=== PATIENT | female | born 1975 | race Caucasian/White ===

== ENCOUNTER 2018-05-05 10:37 | Emergency (ER) | payer SELFPAY ==
[2018-05-05 10:59] VITALS: BP 118/81
[2018-05-05] MEDS ORDERED: NORMAL SALINE 1000 ML 1,000 ML IV ONE (11:08)
[2018-05-05] MEDS ORDERED: KETOROLAC TROMETHAMINE INJ/PF 30 MG/1 ML SDV IV ONE (11:08)
[2018-05-05] MEDS ORDERED: PROCHLORPERAZINE EDISYLATE INJ 10 MG/2 ML VIAL IV ONE (11:09)
--- NOTE | 2018-05-05 11:10 | ER Document Report ---
ED Medical Screen (RME) - General TRAVEL OUTSIDE OF THE [place] IN LAST 30 DAYS: No <SVETLANAJEREKARELYSHERYL - Last Filed: 05/05/18 11:09> <VAZQUEZLISA - Last Filed: 05/05/18 13:15> - General Chief Complaint: Abdominal Pain Stated Complaint: ABDOMINAL PAIN/VOMITING Time Seen by Provider: 05/05/18 11:04 Notes: 43 years old female presents today with nearly a month history of belching and nausea, one day history of left flank pain radiating to the groin associated with vomiting. History of kidney stones 7 years ago. Sharp tenderness over the left flank as well as left side of the abdomen. Seems to be in moderate discomfort (KASSANDRA MOTA) - HPI Notes: 05/05/18 13:12 Patient is a 43-year-old female that presents to the emergency department for chief complaint of left flank pain. Patient started having acute onset of left flank pain at 5 AM this morning. She states it radiates down into her right groin. She states the pain is worse with urination. She denies any hematuria, fevers or chills. She has felt nauseated with no vomiting. She denies any diarrhea. She does have a history of kidney stones and states this feels similar. Patient also states over the last month she has had intermittent episodes of belching, epigastric pain and nausea. She is not currently having epigastric pain. Past Medical History: History of kidney stones, IBS Past Surgical History: Cholecystectomy Social History: Daily tobacco, occasional marijuana, denies alcohol. Family History: Reviewed and noncontributory for presenting illness Allergies: Reviewed, see documented allergy list. REVIEW OF SYSTEMS: CONSTITUTIONAL : No fever No chills No diaphoresis No recent illness EENT: No vision changes No congestion No sore throat CARDIOVASCULAR: No chest pain No palpitations RESPIRATORY: No shortness of breath No cough No difficulty breathing GASTROINTESTINAL: abdominal pain nausea No vomiting No diarrhea GENITOURINARY: dysuria No hematuria No difficulty urinating MUSCULOSKELETAL: No back pain No leg pain No arm pain SKIN: No rashes No lesions LYMPHATIC: No swollen, enlarged glands. NEUROLOGICAL: No lightheadedness No headache No weakness No paresthesias PSYCHIATRIC: No anxiety No depression PHYSICAL EXAMINATION: Vital signs reviewed, nursing noted reviewed. GENERAL: Well-appearing, well-nourished and in no acute distress. HEAD: Atraumatic, normocephalic. EYES: Eyes appear normal, extraocular movements intact, sclera anicteric, conjunctiva are normal. ENT: nares patent, oropharynx clear without exudates. Moist mucous membranes. NECK: Normal range of motion, supple without lymphadenopathy LUNGS: Breath sounds clear to auscultation bilaterally and equal. No wheezes rales or rhonchi. HEART: Regular rate and rhythm without murmurs ABDOMEN: Soft, mild left upper quadrant tenderness, normoactive bowel sounds. No rebound, guarding, or rigidity. No masses appreciated. EXTREMITIES: Nontender, good range of motion, no pitting or edema. NEUROLOGICAL: No focal neurological deficits. Moves all extremities spontaneously Motor and sensory grossly intact on exam. PSYCH: Normal mood, normal affect. SKIN: Warm, Dry, normal turgor, no rashes or lesions noted on exposed skin (LISA VAZQUEZ) - Related Data Allergies/Adverse Reactions: No Known Allergies Allergy (Unverified 05/05/18 10:39) Past Medical History Renal/ Medical History: Denies: Hx Peritoneal Dialysis <KASSANDRA MOTA - Last Filed: 05/05/18 11:09> - Vital signs Vitals: Temp Pulse Resp BP Pulse Ox 98.5 F 102 H 17 118/81 100 05/05/18 10:58 05/05/18 10:58 05/05/18 10:58 05/05/18 10:58 05/05/18 10:58 Course - Laboratory Result Diagrams: 05/05/18 11:20 05/05/18 11:20 <ILSA VAZQUEZ - Last Filed: 05/05/18 13:15> - Re-evaluation Re-evalutation: 05/05/18 13:14 Vitals reviewed. Nursing notes reviewed. Patient CT scan shows no acute intra- abdominal process. Her blood work is unremarkable. Urinalysis negative for i nfection. She does have some calcium oxalate crystals in her urine. Patient symptoms may be related to ureterolithiasis that has been passed. She is not having any current renal failure or hydronephrosis. Patient did have some improvement after Toradol. She will be discharged home in stable condition and encouraged to follow closely with primary care as an outpatient. Counseled on return precautions and verbalized understanding. Laboratory 05/05/18 05/05/18 05/05/18 11:20 11:20 11:41 WBC 8.1 RBC 4.69 Hgb 15.7 H Hct 44.7 MCV 95 MCH 33.5 H MCHC 35.2 RDW 12.8 Plt Count 246 Seg Neutrophils % 61.7 Lymphocytes % 30.9 Monocytes % 5.6 Eosinophils % 1.4 Basophils % 0.4 Absolute Neutrophils 5.0 Absolute Lymphocytes 2.5 Absolute Monocytes 0.4 Absolute Eosinophils 0.1 Absolute Basophils 0.0 Sodium 141.7 Potassium 4.5 Chloride 108 H Carbon Dioxide 23 Anion Gap 11 BUN 10 Creatinine 0.57 Est GFR ( Amer) > 60 Est GFR (Non-Af Amer) > 60 Glucose 109 Calcium 10.1 Total Bilirubin 0.8 Direct Bilirubin 0.2 Neonat Total Bilirubin Not Reportable Neonat Direct Bilirubin Not Reportable Neonat Indirect Bili Not Reportable AST 21 ALT 17 Alkaline Phosphatase 80 Total Protein 8.2 Albumin 5.2 H Lipase 47.0 Urine Color Urine Appearance Urine pH Ur Specific [place] Urine Protein Urine Glucose (UA) Urine Ketones Urine Blood Urine Nitrite Urine Bilirubin Urine Urobilinogen Ur Leukocyte Esterase Urine WBC (Auto) Squamous Epi Cells Auto Calcium Oxalate Cr Auto Amorphous Sediment Auto Urine Mucus (Auto) Urine Ascorbic Acid Urine HCG, Qual Urine Opiates Screen NEGATIVE Urine Methadone Screen NEGATIVE Ur Barbiturates Screen NEGATIVE Ur Phencyclidine Scrn NEGATIVE Ur Amphetamines Screen NEGATIVE U Benzodiazepines Scrn NEGATIVE Urine Cocaine Screen NEGATIVE U Marijuana (THC) Screen UNCONFIRMED POSITIVE 05/05/18 11:41 WBC RBC Hgb Hct MCV MCH MCHC RDW Plt Count Seg Neutrophils % Lymphocytes % Monocytes % Eosinophils % Basophils % Absolute Neutrophils Absolute Lymphocytes Absolute Monocytes Absolute Eosinophils Absolute Basophils Sodium Potassium Chloride Carbon Dioxide Anion Gap BUN Creatinine Est GFR ( Amer) Est GFR (Non-Af Amer) Glucose Calcium Total Bilirubin Direct Bilirubin Neonat Total Bilirubin Neonat Direct Bilirubin Neonat Indirect Bili AST ALT Alkaline Phosphatase Total Protein Albumin Lipase Urine Color YELLOW Urine Appearance TURBID Urine pH 5.0 Ur Specific [place] 1.029 Urine Protein 30 H Urine Glucose (UA) NEGATIVE Urine Ketones NEGATIVE Urine Blood MODERATE H Urine Nitrite NEGATIVE Urine Bilirubin MODERATE H Urine Urobilinogen 2.0 H Ur Leukocyte Esterase NEGATIVE Urine WBC (Auto) 1 Squamous Epi Cells Auto 10 Calcium Oxalate Cr Auto MODERATE Amorphous Sediment Auto TRACE Urine Mucus (Auto) MANY Urine Ascorbic Acid NEGATIVE Urine HCG, Qual NEGATIVE Urine Opiates Screen Urine Methadone Screen Ur Barbiturates Screen Ur Phencyclidine Scrn Ur Amphetamines Screen U Benzodiazepines Scrn Urine Cocaine Screen U Marijuana (THC) Screen Limited or Localized CT 05/05/18 11:08 IMPRESSION: 1. No CT findings to explain acute flank pain. No evidence of urinary tract calculus or hydronephrosis. 2. Diverticulosis without evidence of acute diverticulitis. (LISA VAZQUEZ) - Vital Signs Vital signs: Temp Pulse Resp BP Pulse Ox 98.5 F 102 H 17 118/81 100 05/05/18 10:58 05/05/18 10:58 05/05/18 10:58 05/05/18 10:58 05/05/18 10:58 - Laboratory Laboratory results interpreted by me: 05/05/18 05/05/18 05/05/18 11:20 11:20 11:41 Hgb 15.7 H MCH 33.5 H Chloride 108 H Albumin 5.2 H Urine Protein 30 H Urine Blood MODERATE H Urine Bilirubin MODERATE H Urine Urobilinogen 2.0 H Doctor's Discharge <KASSANDRA MOTA - Last Filed: 05/05/18 11:09> <LISA VAZQUEZ - Last Filed: 05/05/18 13:15> - Discharge Clinical Impression: Left flank pain Condition: Stable Disposition: HOME, SELF-CARE Instructions: Abdominal Pain ([facility]) Additional Instructions: Please return to the emergency department if you have any worsening, or concern of your symptoms. Please return to the emergency department if you develop chest pain, difficulty breathing, severe abdominal pain, or ongoing vomiting. Please follow-up with your primary care physician in 2-3 days and any other recommended physicians. If prescribed, take all medications as directed. If you have any questions or concerns do not hesitate to return the emergency department for evaluation. Referrals: [facility] [Provider Group] - Follow up in 3-5 days
[2018-05-05 11:58] LABS: ABSOLUTE EOSINOPHILS # (AUTO) 0.1 10^3/uL (0.0-0.6); ABSOLUTE LYMPHOCYTES (AUTO) 2.5 10^3/uL (0.5-4.7); ABSOLUTE MONOCYTES (AUTO) 0.4 10^3/uL (0.1-1.4); BASOPHILS % (AUTO) 0.4 % (0-2); EOSINOPHILS % (AUTO) 1.4 % (0-6); HEMATOCRIT 44.7 % (36.0-47.0); HEMOGLOBIN 15.7 g/dL (12.0-15.5); LYMPHOCYTES % (AUTO) 30.9 % (13-45); MEAN CORPUSCULAR HEMOGLOBIN 33.5 pg (27.0-33.4); MEAN CORPUSCULAR HGB CONC 35.2 g/dL (32.0-36.0); MEAN CORPUSCULAR VOLUME 95 fl (80-97); MONOCYTES % (AUTO) 5.6 % (3-13); PLATELET COUNT 246 10^3/uL (150-450); RED BLOOD COUNT 4.69 10^6/uL (3.72-5.28); RED CELL DISTRIBUTION WIDTH 12.8 % (11.5-14.0); SEGMENTED NEUTROPHILS % (AUTO) 61.7 % (42-78); TOTAL CELLS COUNTED % (AUTO) 100 %; WHITE BLOOD COUNT 8.1 10^3/uL (4.0-10.5)
[2018-05-05 12:17] LABS: ALANINE AMINOTRANSFERASE 17 U/L (9-52); ALBUMIN 5.2 g/dL (3.5-5.0); ALKALINE PHOSPHATASE 80 U/L (38-126); ANION GAP 11 (5-19); ASPARTATE AMINO TRANSFERASE 21 U/L (14-36); BILIRUBIN,DIRECT 0.2 mg/dL (0.0-0.4); BILIRUBIN,TOTAL 0.8 mg/dL (0.2-1.3); BLOOD UREA NITROGEN 10 mg/dL (7-20); CALCIUM 10.1 mg/dL (8.4-10.2); CARBON DIOXIDE 23 mmol/L (22-30); CHLORIDE 108 mmol/L (98-107); GLUCOSE 109 mg/dL (75-110); POTASSIUM 4.5 mmol/L (3.6-5.0); SODIUM 141.7 mmol/L (137-145); TOTAL PROTEIN 8.2 g/dL (6.3-8.2)
[2018-05-05 12:24] LABS: AMORPHOUS SEDIMENT,URINE TRACE /HPF; APPEARANCE,URINE TURBID; BILIRUBIN,URINE MODERATE (NEGATIVE); CALCIUM OXALATE CRYSTALS,URINE MODERATE /HPF; COLOR,URINE YELLOW; GLUCOSE, URINE NEGATIVE (NEGATIVE); KETONES,URINE NEGATIVE (NEGATIVE); LEUKOCYTE ESTERASE,URINE NEGATIVE (NEGATIVE); NITRITE,URINE NEGATIVE (NEGATIVE); PROTEIN,URINE 30 mg/dL (NEGATIVE); URINE SPECIFIC GRAVITY 1.029
[2018-05-05 12:45] LABS: URINE AMPHETAMINES SCREEN NEGATIVE; URINE BARBITURATES SCREEN NEGATIVE; URINE BENZODIAZEPINES SCREEN NEGATIVE; URINE COCAINE SCREEN NEGATIVE; URINE MARIJUANA (THC) SCREEN UNCONFIRMED POSITIVE; URINE METHADONE SCREEN NEGATIVE; URINE PHENCYCLIDINE SCREEN NEGATIVE
--- NOTE | 2018-05-05 12:56 | RADIOLOGY REPORT (SQ) ---
EXAM DESCRIPTION: CT LTD RENAL STONE PROTOCOL ON COMPLETED DATE/TIME: 05/05/2018 12:39 pm REASON FOR STUDY: Left flank pain COMPARISON: None. TECHNIQUE: CT scan of the abdomen and pelvis performed without intravenous or oral contrast. Images reviewed with lung, soft tissue, and bone windows. Reconstructed coronal and sagittal MPR images revi ewed. All images stored on PACS. All CT scanners at this facility use dose modulation, iterative reconstruction, and/or weight based d osing when appropriate to reduce radiation dose to as low as reasonably achievable (ALARA). [facility]: Dose Right [facility]: CareDose [facility]: Dose Right [facility]: Teradose 4D [facility]: [employer] RADIATION DOSE: CT Rad equipment meets quality standard of care and radiation dose reduction techniq ues were employed. CTDIvol: 7.6 mGy. DLP: 398 mGy-cm.mGy. LIMITATIONS: None. FINDINGS: LOWER CHEST: No significant findings. No nodules or infiltrates. NON-CONTRASTED LIVER, SPLEEN, ADRENALS: Evaluation limited by lack of IV contrast. No identified sign ificant masses. PANCREAS: No masses. No peripancreatic inflammatory changes. GALLBLADDER: Surgically absent. RIGHT KIDNEY AND URETER: No suspicious masses. Assessment limited by lack of IV contrast. No signif icant calcifications. No hydronephrosis or hydroureter. LEFT KIDNEY AND URETER: No suspicious masses. Assessment limited by lack of IV contrast. No signifi cant calcifications. No hydronephrosis or hydroureter. AORTA AND RETROPERITONEUM: No aneurysm. No retroperitoneal masses or adenopathy. BOWEL AND PERITONEAL CAVITY: No obvious masses or inflammatory changes. No free fluid. Sigmoid diver ticulosis. APPENDIX: Normal. PELVIS, BLADDER, AND ABDOMINAL WALL:No abnormal masses. No free fluid. Bladder normal. BONES: No significant findings. OTHER: No other significant finding. IMPRESSION: 1. No CT findings to explain acute flank pain. No evidence of urinary tract calculus o r hydronephrosis. 2. Diverticulosis without evidence of acute diverticulitis. COMMENT: Quality ID # [id number]: Final reports with documentation of one or more dose reduction techniques (e.g., Automated exposure control, adjustment of the mA and/or kV according to patient size, use of iterative reconstruction technique) TECHNICAL DOCUMENTATION: JOB ID: [id number]- All Rights Reserved Reading location - IP/workstation name: [email or web address]
[2018-05-05] MEDS ORDERED: ACETAMINOPHEN 325 MG TABLET PO ONE (13:10)
== END 2018-05-05 13:29 | disposition home or self-care (01) ==
LOC: ER 10:37
DX: R10.9 Unspecified abdominal pain (principal); R11.2 Nausea with vomiting, unspecified; R10.30 Lower abdominal pain, unspecified; R10.13 Epigastric pain; R14.2 Eructation
CPT/HCPCS: 99284; 96361; 96374; 96375; 36415; 83690; 85025; 81025; 80053; 81001; 80307; 76380; J1885; J0780; J7030

== ENCOUNTER 2018-06-15 17:47 | Emergency (ER) | payer SELFPAY ==
--- NOTE | 2018-06-15 17:58 | ER Document Report ---
ED Medical Screen (RME) - General Chief Complaint: Abdominal Pain Stated Complaint: ABDOMINAL PAIN/VOMITING Time Seen by Provider: 06/15/18 17:58 Notes: Patient is a 43-year-old female history of kidney stones that presents to the emergency department for chief complaint of right flank pain, nausea and vomiting pain started around 1 PM today and has not improved. ROS: Other than noted above, the 12 point review of systems was reviewed with the patient and were negative, all pertinent findings are included in the HPI. PHYSICAL EXAMINATION: Vital signs reviewed. GENERAL: Patient appears uncomfortable, dry heaving on exam HEAD: Atraumatic, normocephalic. EYES: Pupils equal round extraocular movements intact, conjunctiva are normal. ENT: Nares patent NECK: Normal range of motion CV: Heart regular rate and rhythm LUNGS: No respiratory distress Musculoskeletal: Normal range of motion NEUROLOGICAL: Normal speech PSYCH: Appears uncomfortable MDM: Patient seen and examined for rapid initial assessment. Vital signs reviewed. A comprehensive ED assessment and evaluation of the patient, analysis of test results and completion of the medical decision making process will be conducted by additional ED providers. *Note is created using voice recognition software and may contain spelling, syntax or grammatical errors. TRAVEL OUTSIDE OF THE [place] IN LAST 30 DAYS: No - Related Data Allergies/Adverse Reactions: No Known Allergies Allergy (Verified 06/15/18 17:51) Past Medical History Renal/ Medical History: Denies: Hx Peritoneal Dialysis Physical Exam - Vital signs Vitals: Temp Pulse Resp BP Pulse Ox 98.2 F 86 26 H 148/104 H 98 06/15/18 17:50 06/15/18 17:50 06/15/18 17:50 06/15/18 17:50 06/15/18 17:50 Course - Vital Signs Vital signs: Temp Pulse Resp BP Pulse Ox 98.2 F 86 26 H 148/104 H 98 06/15/18 17:50 06/15/18 17:50 06/15/18 17:50 06/15/18 17:50 06/15/18 17:50
[2018-06-15] MEDS ORDERED: RINGERS SOLUTION,LACTATED 1,000 ML IV ONE (17:59)
[2018-06-15] MEDS ORDERED: ONDANSETRON HCL INJ/PF 4 MG/2 ML SDV IV ONE ×2 (17:59→20:39)
[2018-06-15] MEDS ORDERED: FENTANYL CITRATE INJ/PF 100 MCG/2 ML AMPUL IV ONE (17:59)
[2018-06-15 18:42] LABS: ABSOLUTE LYMPHOCYTES (AUTO) 1.5 10^3/uL (0.5-4.7); ABSOLUTE MONOCYTES (AUTO) 0.3 10^3/uL (0.1-1.4); ABSOLUTE NEUT (AUTO) 6.2 10^3/uL (1.7-8.2); BASOPHILS % (AUTO) 0.5 % (0-2); EOSINOPHILS % (AUTO) 0.2 % (0-6); HEMATOCRIT 44.8 % (36.0-47.0); HEMOGLOBIN 15.7 g/dL (12.0-15.5); LYMPHOCYTES % (AUTO) 18.8 % (13-45); MEAN CORPUSCULAR HEMOGLOBIN 33.7 pg (27.0-33.4); MEAN CORPUSCULAR VOLUME 96 fl (80-97); MONOCYTES % (AUTO) 3.2 % (3-13); PLATELET COUNT 261 10^3/uL (150-450); RED BLOOD COUNT 4.65 10^6/uL (3.72-5.28); RED CELL DISTRIBUTION WIDTH 12.9 % (11.5-14.0); SEGMENTED NEUTROPHILS % (AUTO) 77.3 % (42-78); TOTAL CELLS COUNTED % (AUTO) 100 %
[2018-06-15 18:46] LABS: APPEARANCE,URINE TURBID; BILIRUBIN,URINE SMALL (NEGATIVE); COLOR,URINE YELLOW; GLUCOSE, URINE NEGATIVE (NEGATIVE); KETONES,URINE TRACE mg/dL (NEGATIVE); LEUKOCYTE ESTERASE,URINE TRACE (NEGATIVE); NITRITE,URINE NEGATIVE (NEGATIVE); PROTEIN,URINE 100 mg/dL (NEGATIVE); URINE SPECIFIC GRAVITY 1.029
[2018-06-15 18:54] LABS: ALANINE AMINOTRANSFERASE 39 U/L (9-52); ALBUMIN 5.2 g/dL (3.5-5.0); ALKALINE PHOSPHATASE 87 U/L (38-126); ANION GAP 14 (5-19); ASPARTATE AMINO TRANSFERASE 43 U/L (14-36); BILIRUBIN,DIRECT 0.3 mg/dL (0.0-0.4); BILIRUBIN,TOTAL 1.1 mg/dL (0.2-1.3); BLOOD UREA NITROGEN 12 mg/dL (7-20); CALCIUM 10.4 mg/dL (8.4-10.2); CARBON DIOXIDE 23 mmol/L (22-30); CHLORIDE 105 mmol/L (98-107); GLUCOSE 115 mg/dL (75-110); LIPASE 31.3 U/L (23-300); SODIUM 141.5 mmol/L (137-145)
[2018-06-15] MEDS ORDERED: METOCLOPRAMIDE HCL INJ/PF 10 MG/2 ML SDV IV ONE (19:09)
[2018-06-15] MEDS ORDERED: HYDROMORPHONE HCL INJ/PF 2 MG/ML AMPULE IV ONE ×2 (19:09→21:32)
--- NOTE | 2018-06-15 19:55 | RADIOLOGY REPORT (SQ) ---
EXAM DESCRIPTION: CT ABD/PELVIS NO ORAL OR IV COMPLETED DATE/TIME: 06/15/2018 7:44 pm REASON FOR STUDY: right flank pain, hx stones COMPARISON: 05/05/2018 TECHNIQUE: CT scan of the abdomen and pelvis performed without intravenous or oral contrast. Images reviewed with lung, soft tissue, and bone windows. Reconstructed coronal and sagittal MPR images revi ewed. All images stored on PACS. All CT scanners at this facility use dose modulation, iterative reconstruction, and/or weight based d osing when appropriate to reduce radiation dose to as low as reasonably achievable (ALARA). [facility]: Dose Right [facility]: CareDose [facility]: Dose Right [facility]: Teradose 4D [facility]: [employer] RADIATION DOSE: CT Rad equipment meets quality standard of care and radiation dose reduction techniq ues were employed. CTDIvol: 7.6 mGy. DLP: 397 mGy-cm.mGy. LIMITATIONS: None. FINDINGS: LOWER CHEST: No significant findings. No nodules or infiltrates. NON-CONTRASTED LIVER, SPLEEN, ADRENALS: Evaluation limited by lack of IV contrast. No identified sign ificant masses. PANCREAS: No masses. No peripancreatic inflammatory changes. GALLBLADDER: Surgically absent. RIGHT KIDNEY AND URETER: No suspicious masses. Assessment limited by lack of IV contrast. No signif icant calcifications. No hydronephrosis or hydroureter. LEFT KIDNEY AND URETER: No suspicious masses. Assessment limited by lack of IV contrast. No signifi cant calcifications. No hydronephrosis or hydroureter. AORTA AND RETROPERITONEUM: No aneurysm. No retroperitoneal masses or adenopathy. BOWEL AND PERITONEAL CAVITY: No dilated loops of bowel. Few scattered diverticula of the colon. No inflammatory changes to suggest diverticulitis. No intraperitoneal free air or free fluid. No perit beauchamp mass. APPENDIX: Normal. PELVIS, BLADDER, AND ABDOMINAL WALL:No abnormal masses. No free fluid. Urinary bladder is collapsed. Bilateral tubal ligation devices present. BONES: No significant findings. OTHER: No other significant finding. IMPRESSION: No acute findings of the abdomen or pelvis. Specifically, no nephrolithiasis or hydrone phrosis. COMMENT: Quality ID # [id number]: Final reports with documentation of one or more dose reduction techniques (e.g., Automated exposure control, adjustment of the mA and/or kV according to patient size, use of iterative reconstruction technique) TECHNICAL DOCUMENTATION: JOB ID: [id number] [employer]- All Rights Reserved Reading location - IP/workstation name: [email or web address]
--- NOTE | 2018-06-15 23:58 | ER Document Report ---
ED GI/ - General Chief Complaint: Abdominal Pain Stated Complaint: ABDOMINAL PAIN/VOMITING Time Seen by Provider: 06/15/18 17:58 Primary Care Provider: PRATIMA BEAR MD [ACTIVE STAFF] - Follow up as needed CHASITY HOLT MD [COMMUNITY BASED STAFF] - Follow up as needed Mode of Arrival: Ambulatory Information source: Patient TRAVEL OUTSIDE OF THE [place] IN LAST 30 DAYS: No - HPI Patient complains to provider of: Abdominal pain Onset: This afternoon Timing/Duration: Sudden Quality of pain: Cramping Severity at maximum: Severe Severity in ED: Severe Pain Level: 5 Associated symptoms: Loss of appetite, Vomiting Exacerbated by: Denies Relieved by: Other - Dilaudid Similar symptoms previously: Yes Recently seen / treated by doctor: No - Related Data Allergies/Adverse Reactions: No Known Allergies Allergy (Verified 06/15/18 17:51) Past Medical History - Social History Smoking Status: Current Every Day Smoker Chew tobacco use (# tins/day): No Frequency of alcohol use: None Drug Abuse: Marijuana Family History: Reviewed & Not Pertinent Patient has suicidal ideation: No Patient has homicidal ideation: No Renal/ Medical History: Denies: Hx Peritoneal Dialysis Past Surgical History: Reports: Hx Cholecystectomy Review of Systems - Review of Systems Constitutional: No symptoms reported EENT: No symptoms reported Cardiovascular: No symptoms reported Respiratory: No symptoms reported Gastrointestinal: Abdominal pain, Nausea, Vomiting Genitourinary: No symptoms reported Female Genitourinary: No symptoms reported Musculoskeletal: No symptoms reported Skin: No symptoms reported Hematologic/Lymphatic: No symptoms reported Neurological/Psychological: No symptoms reported -: Yes All other systems reviewed and negative Physical Exam - Vital signs Vitals: Temp Pulse Resp BP Pulse Ox 98.2 F 86 26 H 148/104 H 98 06/15/18 17:50 06/15/18 17:50 06/15/18 17:50 06/15/18 17:50 06/15/18 17:50 Interpretation: Normal - General General appearance: Appears well, Alert - HEENT Head: Normocephalic, Atraumatic Eyes: Normal Pupils: PERRL - Respiratory Respiratory status: No respiratory distress Chest status: Nontender Breath sounds: Normal Chest palpation: Normal - Cardiovascular Rhythm: Regular Heart sounds: Normal auscultation Murmur: No - Abdominal Inspection: Normal Distension: No distension Bowel sounds: Normal Tenderness: Tender - Mild diffuse tenderness to palpation. No: Guarding, Rebound Organomegaly: No organomegaly - Back Back: Normal, Nontender - Extremities General upper extremity: Normal inspection, Nontender, Normal color, Normal ROM, Normal temperature General lower extremity: Normal inspection, Nontender, Normal color, Normal ROM, Normal temperature, Normal weight bearing. No: Justina's sign - Neurological Neuro grossly intact: Yes Cognition: Normal Orientation: AAOx4 [place] Coma Scale Eye Opening: Spontaneous [place] Coma Scale Verbal: Oriented [place] Coma Scale Motor: Obeys Commands Jack Coma Scale Total: 15 Speech: Normal Motor strength normal: LUE, RUE, LLE, RLE Sensory: Normal - Psychological Associated symptoms: Normal affect, Normal mood - Skin Skin Temperature: Warm Skin Moisture: Dry Skin Color: Normal Course - Re-evaluation Re-evalutation: 06/16/18 00:40 On reevaluation patient is pain-free and she is ready to go home. - Vital Signs Vital signs: Temp Pulse Resp BP Pulse Ox 98.6 F 83 18 166/81 H 100 06/16/18 00:52 06/16/18 00:52 06/16/18 00:52 06/16/18 00:52 06/16/18 00:52 - Laboratory Result Diagrams: 06/15/18 18:28 06/15/18 18:28 Laboratory results interpreted by me: 06/15/18 06/15/18 06/15/18 18:28 18:28 18:28 Hgb 15.7 H MCH 33.7 H Glucose 115 H Calcium 10.4 H AST 43 H Total Protein 9.0 H Albumin 5.2 H Urine Protein 100 H Urine Ketones TRACE H Urine Blood MODERATE H Urine Bilirubin SMALL H Urine Urobilinogen 4.0 H Ur Leukocyte Esterase TRACE H - Diagnostic Test Radiology reviewed: Reports reviewed Discharge - Discharge Clinical Impression: Abdominal pain Qualifiers: Abdominal location: generalized Qualified Code(s): R10.84 - Generalized abdominal pain Nausea and vomiting Qualifiers: Vomiting type: unspecified Vomiting Intractability: non-intractable Qualified Code(s): R11.2 - Nausea with vomiting, unspecified Condition: Stable Disposition: HOME, SELF-CARE Instructions: Abdominal Pain ([facility]), Vomiting ([facility]) Additional Instructions: Please follow-up with the [employer] Rep[employer] Supervisor Dr. Pratima Bear tomorrow morning in his clinic. Prescriptions: Acetaminophen [Tylenol 8 Hour] 650 mg PO Q8H PRN #20 tablet.er PRN Reason: Pain Scale Of 3 Ondansetron [Zofran Odt 4 mg Tablet] 1 tab PO Q4H PRN #15 tab.rapdis PRN Reason: For Nausea/Vomiting Referrals: CHASITY HOLT MD [COMMUNITY BASED STAFF] - Follow up as needed PRATIMA BEAR MD [ACTIVE STAFF] - Follow up as needed
--- NOTE | 2018-06-16 00:06 | RADIOLOGY REPORT (SQ) ---
EXAM DESCRIPTION: CT ABDOMEN PELVIS WITH IV CONTRAST COMPLETED DATE/TME: 06/15/2018 19:53 CLINICAL HISTORY: 43 years Female, Abdominal pain with Vomiting. Comparison: None. Technique: IV contrast. Coronal and sagittal reformat. This exam was performed according to our departmental dose-optimization program, which includes automated exposure control, adjustment of the mA and/or kV according to patient size and/or use of iterative reconstruction technique. [facility]: Dose Right [facility]: CareDose [facility]: Dose Right [facility]: Teradose 4D [facility]: [employer] LIMITATIONS: None Findings: Colonic diverticulosis. Low attenuation diffuse large bowel wall thickening suggestive of prior infectious/inflammatory insult. Cholecystectomy. Essure implants. Degenerative disc disease. Small L1-L2 disc bulge. No ascites. No pneumoperitoneum. No bowel obstruction. No hydronephrosis or hydroureter. No renal/ureteral stone. No evidence of appendicitis. Likely normal appendix partially discerned. Inferior thorax, liver, pancreas, spleen, adrenals, renal system, gastrointestinal tract, pelvic organs, lymphatics, vasculature, and musculoskeleton appear otherwise unremarkable. IMPRESSION: No acute findings.
[2018-06-16 00:53] VITALS: BP 166/81
== END 2018-06-16 00:53 | disposition home or self-care (01) ==
LOC: ER 17:47
DX: R11.2 Nausea with vomiting, unspecified (principal); R10.84 Generalized abdominal pain; F17.200 Nicotine dependence, unspecified, uncomplicated; Z90.49 Acquired absence of other specified parts of digestive tract
CPT/HCPCS: 96376; 99284; 96361; 96374; 96375; 36415; 83690; 84703; 85025; 80053; 81001; 74176; 74177; J3010; J2765; J1170; J2405; J7120

== ENCOUNTER 2018-06-28 04:47 | Emergency (ER) | payer SELFPAY ==
[2018-06-28] MEDS ORDERED: NORMAL SALINE 1000 ML 1,000 ML IV ONE ×2 (05:10→05:22)
[2018-06-28] MEDS ORDERED: DICYCLOMINE HCL INJ 20 MG/2 ML AMPULE IM STA (05:21)
[2018-06-28] MEDS ORDERED: ONDANSETRON HCL INJ/PF 4 MG/2 ML SDV IV ONE (05:21)
[2018-06-28] MEDS ORDERED: KETOROLAC TROMETHAMINE INJ/PF 30 MG/1 ML SDV IV ONE (05:21)
--- NOTE | 2018-06-28 05:25 | ER Document Report ---
ED GI/ - General Chief Complaint: Vomiting Stated Complaint: VOMITING Time Seen by Provider: 06/28/18 05:15 Mode of Arrival: Ambulatory Information source: Patient TRAVEL OUTSIDE OF THE [place] IN LAST 30 DAYS: No - HPI Patient complains to provider of: Abdominal pain, Vomiting Notes: 06/28/18 05:22 Patient is here with complaints of upper abdominal pain with nausea vomiting. This started approximately 11:00 last night. She also had some diarrhea with it. No blood in her vomit or stool. No fevers. No dysuria or hematuria. Pain is in the upper abdomen, constant, nothing makes it better or worse. She has a history of irritable bowel syndrome. She was seen for the same picture approximately 2 weeks ago and had an unremarkable CT at that time as well as unremarkable labs aside from a positive drug screen for T HC. She states that she smokes marijuana occasionally, but not daily. She was referred to GI, but she has not followed up with GI at. She denies any chest pain or shortness of breath. No rash. No injury. No numbness, tingling, weakness. No other complaints. She has had prior cholecystectomy. - Related Data Allergies/Adverse Reactions: No Known Allergies Allergy (Verified 06/15/18 17:51) Past Medical History - Social History Smoking Status: Current Every Day Smoker Family History: Reviewed & Not Pertinent Renal/ Medical History: Denies: Hx Peritoneal Dialysis Past Surgical History: Reports: Hx Cholecystectomy Review of Systems - Review of Systems -: Yes All other systems reviewed and negative Physical Exam - Vital signs Vitals: Temp Pulse Resp BP Pulse Ox 98 F 124 H 28 H 125/87 H 98 06/28/18 04:47 06/28/18 04:47 06/28/18 04:47 06/28/18 04:47 06/28/18 04:47 - Notes Notes: GENERAL: alert, cooperative, nontoxic, no distress. Patient moaning stating that she is having pain. Slightly histrionic acting. HEAD: normocephalic, atraumatic EYES: conjunctiva pink without discharge, no external redness or swelling. EARS: no external swelling, no external redness NOSE: atraumatic, no external swelling MOUTH/THROAT: mucous membranes moist and pink, posterior pharynx without erythema, swelling, exudate. No trismus or drooling. NECK: soft, supple, full range of motion, no meningismus. CHEST: no distress, lungs clear and equal throughout. No wheezing, rales, rhonchi. CARDIAC: regular rate and rhythm, no murmur, normal capillary refill, normal pulses. No peripheral edema noted. ABDOMEN: Soft, tenderness to palpation of the upper abdomen. No rebound tenderness or guarding. No obvious mass. BACK: full range of motion, no CVA tenderness. EXTREMITIES: full range of motion of all extremities. No redness, no swelling. NEURO: alert and oriented x 3, no focal deficits, full range of motion of all extremities. PYSCH: appropriate mood, affect. Patient is cooperative. SKIN: pink, warm, dry, no rash. Course - Re-evaluation Re-evalutation: 06/28/18 06:07 Patient still with complaints of abdominal pain. States that the medication she was given is not helping at all. I have ordered her a dose of Haldol. We will continue to monitor. Currently awaiting lab results. 06/28/18 06:59 Patient is resting comfortably at this time. Pain seems to have improved. We will continue to monitor. Currently awaiting urinalysis results. 06/28/18 07:38 Patient continues to have no vomiting feeling improved at this time. Patient has no urinary symptoms. She was just here 2 weeks ago with similar symptoms and had a CT that was unremarkable at that time. Do not believe that another CT is indicated at this time as her labs are unremarkable aside from a very minimally elevated white count. Is a nonfocal abdominal exam at this time. We will recheck her vital signs, patient will be discharged home with a prescription for Naprosyn, Bentyl, Zofran. Instructions to follow-up with GI at the next available appointment. Follow-up sooner if she has any worsening pain, high fever, persistent vomiting, or has any further concerns. - Vital Signs Vital signs: Temp Pulse Resp BP Pulse Ox 98 F 124 H 28 H 125/87 H 98 06/28/18 04:47 06/28/18 04:47 06/28/18 04:47 06/28/18 04:47 06/28/18 04:47 - Laboratory Result Diagrams: 06/28/18 05:52 06/28/18 05:52 Laboratory results interpreted by me: 06/28/18 06/28/18 05:52 05:52 WBC 11.6 H MCH 33.7 H Seg Neutrophils % 92.0 H Lymphocytes % 6.0 L Monocytes % 1.8 L Absolute Neutrophils 10.7 H Carbon Dioxide 17 L Glucose 146 H Discharge - Discharge Clinical Impression: Abdominal pain Qualifiers: Abdominal location: epigastric Qualified Code(s): R10.13 - Epigastric pain Nausea & vomiting Qualifiers: Vomiting type: unspecified Vomiting Intractability: non-intractable Qualified Code(s): R11.2 - Nausea with vomiting, unspecified Condition: Stable Disposition: HOME, SELF-CARE Instructions: Abdominal Pain ([facility]), Antinausea Medication ([facility]), Antispasmodics ([facility]), Vomiting ([facility]) Additional Instructions: Take medication as prescribed. Drink plenty fluids. Follow-up with GI at the next available appointment. Follow-up sooner for worsening pain, fever, persistent vomiting, blood in your vomit or stool, or for any further concerns. Prescriptions: Dicyclomine HCl [Bentyl 20 mg Tablet] 20 mg PO QID #20 tablet Naproxen [Naprosyn] 500 mg PO BID #20 tablet Ondansetron HCl [Zofran 4 mg Tablet] 1 - 2 tab PO Q4H PRN #10 tablet PRN Reason: Forms: Smoking Cessation Education Referrals: [facility] [Provider Group] - Follow up as needed PRATIMA BEAR MD [ACTIVE STAFF] - Follow up as needed
[2018-06-28] MEDS ORDERED: HALOPERIDOL LACTATE INJ 5 MG/1 ML VIAL IV ONE (06:06)
[2018-06-28 06:11] LABS: ABSOLUTE LYMPHOCYTES (AUTO) 0.7 10^3/uL (0.5-4.7); ABSOLUTE MONOCYTES (AUTO) 0.2 10^3/uL (0.1-1.4); ABSOLUTE NEUT (AUTO) 10.7 10^3/uL (1.7-8.2); BASOPHILS % (AUTO) 0.2 % (0-2); HEMATOCRIT 41.8 % (36.0-47.0); HEMOGLOBIN 14.7 g/dL (12.0-15.5); MEAN CORPUSCULAR HEMOGLOBIN 33.7 pg (27.0-33.4); MEAN CORPUSCULAR HGB CONC 35.1 g/dL (32.0-36.0); MEAN CORPUSCULAR VOLUME 96 fl (80-97); MONOCYTES % (AUTO) 1.8 % (3-13); PLATELET COUNT 224 10^3/uL (150-450); RED BLOOD COUNT 4.36 10^6/uL (3.72-5.28); RED CELL DISTRIBUTION WIDTH 12.8 % (11.5-14.0); TOTAL CELLS COUNTED % (AUTO) 100 %; WHITE BLOOD COUNT 11.6 10^3/uL (4.0-10.5)
[2018-06-28 06:33] LABS: ALANINE AMINOTRANSFERASE 20 U/L (9-52); ALBUMIN 4.5 g/dL (3.5-5.0); ALKALINE PHOSPHATASE 82 U/L (38-126); ANION GAP 17 (5-19); ASPARTATE AMINO TRANSFERASE 22 U/L (14-36); BILIRUBIN,DIRECT 0.3 mg/dL (0.0-0.4); BILIRUBIN,TOTAL 1.1 mg/dL (0.2-1.3); BLOOD UREA NITROGEN 13 mg/dL (7-20); CALCIUM 9.5 mg/dL (8.4-10.2); CARBON DIOXIDE 17 mmol/L (22-30); CHLORIDE 105 mmol/L (98-107); GLUCOSE 146 mg/dL (75-110); LIPASE 27.5 U/L (23-300); POTASSIUM 3.7 mmol/L (3.6-5.0); SODIUM 138.9 mmol/L (137-145); TOTAL PROTEIN 7.4 g/dL (6.3-8.2)
[2018-06-28 07:59] VITALS: BP 142/94
== END 2018-06-28 08:07 | disposition home or self-care (01) ==
LOC: ER 04:47
DX: R11.2 Nausea with vomiting, unspecified (principal); R10.13 Epigastric pain; R19.7 Diarrhea, unspecified; F17.200 Nicotine dependence, unspecified, uncomplicated; Z87.19 Personal history of other diseases of the digestive system; Z90.49 Acquired absence of other specified parts of digestive tract
CPT/HCPCS: 99284; 96372; 96361; 96374; 96375; 36415; 83690; 85025; 80053; J0500; J1630; J1885; J2405; J7030

== ENCOUNTER 2018-06-30 10:57 | Emergency (ER) | payer SELFPAY ==
[2018-06-30 11:03] VITALS: BP 112/75
[2018-06-30] MEDS ORDERED: ONDANSETRON 4 MG TAB.RAPDIS PO ONE (12:02)
[2018-06-30] MEDS ORDERED: DICYCLOMINE HCL 20 MG TABLET PO ONE (12:03)
--- NOTE | 2018-06-30 12:04 | ER Document Report ---
ED Medical Screen (RME) - General Chief Complaint: Vomiting Stated Complaint: VOMITING Time Seen by Provider: 06/30/18 12:01 Mode of Arrival: Ambulatory Information source: Patient Notes: Patient presents to the emergency department for the fourth time in 2 months with complaints of abdominal pain and vomiting. Patient reports that she has been given Zofran and Bentyl in the past without relief of symptoms. Patient admits to smoking marijuana occasionally. Reports she does not smoke it often. No complaints of fever or diarrhea. Last bowel movement today. Patient is refusing p.o. meds. Patient is reporting the only thing that helped was Dilaudid. I have greeted and performed a rapid initial assessment of this patient. A comprehensive ED assessment and evaluation of the patient, analysis of test results and completion of the medical decision making process will be conducted by additional ED providers. Dictation of this chart was performed using voice recognition software; therefore, there may be some unintended grammatical errors. TRAVEL OUTSIDE OF THE [place] IN LAST 30 DAYS: No - Related Data Allergies/Adverse Reactions: No Known Allergies Allergy (Verified 06/30/18 11:54) Past Medical History - Social History Chew tobacco use (# tins/day): No Frequency of alcohol use: None Drug Abuse: Marijuana Renal/ Medical History: Denies: Hx Peritoneal Dialysis Psychiatric Medical History: Reports: Hx Depression Past Surgical History: Reports: Hx Section, Hx Cholecystectomy Physical Exam - Vital signs Vitals: Temp Pulse Resp BP Pulse Ox 98.0 F 101 H 20 112/75 97 06/30/18 11:02 06/30/18 11:02 06/30/18 11:02 06/30/18 11:02 06/30/18 11:02 Course - Vital Signs Vital signs: Temp Pulse Resp BP Pulse Ox 98.0 F 101 H 20 112/75 97 06/30/18 11:02 06/30/18 11:02 06/30/18 11:02 06/30/18 11:02 06/30/18 11:02
[2018-06-30] MEDS ORDERED: METOCLOPRAMIDE HCL 10 MG TABLET PO ONE (12:06)
[2018-06-30 12:31] LABS: ABSOLUTE BASOPHILS # (AUTO) 0.1 10^3/uL (0.0-0.2); ABSOLUTE EOSINOPHILS # (AUTO) 0.1 10^3/uL (0.0-0.6); ABSOLUTE LYMPHOCYTES (AUTO) 2.4 10^3/uL (0.5-4.7); ABSOLUTE MONOCYTES (AUTO) 0.5 10^3/uL (0.1-1.4); ABSOLUTE NEUT (AUTO) 4.5 10^3/uL (1.7-8.2); BASOPHILS % (AUTO) 0.8 % (0-2); EOSINOPHILS % (AUTO) 1.1 % (0-6); HEMATOCRIT 44.1 % (36.0-47.0); HEMOGLOBIN 15.5 g/dL (12.0-15.5); LYMPHOCYTES % (AUTO) 31.7 % (13-45); MEAN CORPUSCULAR HGB CONC 35.2 g/dL (32.0-36.0); MEAN CORPUSCULAR VOLUME 97 fl (80-97); MONOCYTES % (AUTO) 6.5 % (3-13); PLATELET COUNT 234 10^3/uL (150-450); RED BLOOD COUNT 4.56 10^6/uL (3.72-5.28); RED CELL DISTRIBUTION WIDTH 12.9 % (11.5-14.0); SEGMENTED NEUTROPHILS % (AUTO) 59.9 % (42-78); TOTAL CELLS COUNTED % (AUTO) 100 %; WHITE BLOOD COUNT 7.4 10^3/uL (4.0-10.5)
[2018-06-30 12:55] LABS: ALANINE AMINOTRANSFERASE 23 U/L (9-52); ALBUMIN 4.8 g/dL (3.5-5.0); ALKALINE PHOSPHATASE 83 U/L (38-126); AMYLASE 36 U/L (30-110); ANION GAP 12 (5-19); ASPARTATE AMINO TRANSFERASE 23 U/L (14-36); BILIRUBIN,DIRECT 0.3 mg/dL (0.0-0.4); BILIRUBIN,TOTAL 1.1 mg/dL (0.2-1.3); BLOOD UREA NITROGEN 5 mg/dL (7-20); CALCIUM 10.1 mg/dL (8.4-10.2); CARBON DIOXIDE 23 mmol/L (22-30); CHLORIDE 105 mmol/L (98-107); GLUCOSE 92 mg/dL (75-110); LIPASE 34.5 U/L (23-300); POTASSIUM 3.5 mmol/L (3.6-5.0); SODIUM 140.3 mmol/L (137-145); TOTAL PROTEIN 8.2 g/dL (6.3-8.2)
== END 2018-06-30 17:35 | disposition left against medical advice (07) ==
LOC: ER 10:57
DX: R11.10 Vomiting, unspecified (principal); R10.9 Unspecified abdominal pain; F12.10 Cannabis abuse, uncomplicated; Z90.49 Acquired absence of other specified parts of digestive tract; Z53.20 Procedure and treatment not carried out because of patient's decision for unspecified reasons
CPT/HCPCS: 36415; 80053; 82150; 83690; 84703; 85025; 99281

== ENCOUNTER 2018-07-08 14:12 | Emergency (ER) | payer SELFPAY ==
[2018-07-08] MEDS ORDERED: ONDANSETRON HCL INJ/PF 4 MG/2 ML SDV IV ONE (15:21)
[2018-07-08] MEDS ORDERED: MORPHINE SULFATE 10 MG/ML INJ IV ONE ×2 (15:21→18:03)
--- NOTE | 2018-07-08 15:24 | ER Document Report ---
ED Medical Screen (RME) - General Chief Complaint: Abdominal Pain Stated Complaint: ABDOMINAL PAIN Time Seen by Provider: 07/08/18 15:17 TRAVEL OUTSIDE OF THE [place] IN LAST 30 DAYS: No - HPI Notes: 07/08/18 15:22 Patient is a 43-year-old female with a history of cholecystectomy, ovarian torsion, tubal ligation, and previous as well as marijuana use who presents complaining of right lower pelvic pain that began suddenly this morning. Patient states that the pain has been sharp all day and she has had associated nausea and vomiting. Patient states that the pain does not radiate and feels somewhat similarly to the ovarian torsion that she had previously. She has not had any other vaginal discharge, odor, or bleeding. Denies BRAVO, fever, neck pain, URI, CP, SOB, or rash. I have treated and performed a rapid initial assessment of this patient. A comprehensive ED assessment and evaluation of the patient, analysis of test results and completion of medical decision making process will be conducted by additional ED providers. US was immediately notified for TVUS to eval for torsion. PHYSICAL EXAMINATION: GENERAL: Pt crying and hunched forward shaking due to pain. A&Ox4. Answers questions appropriately. LUNGS: Breath sounds clear to auscultation bilaterally and equal. No wheezes rales or rhonchi. HEART: Regular rate and rhythm without murmurs, rubs, gallops. ABDOMEN: + tenderness Rt pelvic area (cannot elicit thorough abd exam w/o table, however). Extremities: No cyanosis, clubbing, or edema b/l. NEUROLOGICAL: Normal speech, normal gait. PSYCH: Normal mood, normal affect. - Related Data Allergies/Adverse Reactions: No Known Allergies Allergy (Verified 07/08/18 14:14) Past Medical History Renal/ Medical History: Denies: Hx Peritoneal Dialysis Psychiatric Medical History: Reports: Hx Depression Past Surgical History: Reports: Hx Section, Hx Cholecystectomy Physical Exam - Vital signs Vitals: Pulse Resp BP Pulse Ox 103 H 14 144/87 H 99 07/08/18 14:44 07/08/18 14:44 07/08/18 14:44 07/08/18 14:44 Course - Vital Signs Vital signs: Temp Pulse Resp BP Pulse Ox 103 H 14 144/87 H 99 07/08/18 14:44 07/08/18 14:44 07/08/18 14:44 07/08/18 14:44
[2018-07-08] MEDS ORDERED: DIPHENHYDRAMINE HCL 50 MG/ML VIAL IV ONE (15:50)
[2018-07-08 16:14] LABS: ABSOLUTE LYMPHOCYTES (AUTO) 1.9 10^3/uL (0.5-4.7); ABSOLUTE MONOCYTES (AUTO) 0.3 10^3/uL (0.1-1.4); ABSOLUTE NEUT (AUTO) 7.4 10^3/uL (1.7-8.2); BASOPHILS % (AUTO) 0.4 % (0-2); EOSINOPHILS % (AUTO) 0.5 % (0-6); HEMATOCRIT 45.1 % (36.0-47.0); HEMOGLOBIN 15.9 g/dL (12.0-15.5); LYMPHOCYTES % (AUTO) 19.2 % (13-45); MEAN CORPUSCULAR HEMOGLOBIN 34.6 pg (27.0-33.4); MEAN CORPUSCULAR HGB CONC 35.3 g/dL (32.0-36.0); MEAN CORPUSCULAR VOLUME 98 fl (80-97); MONOCYTES % (AUTO) 3.4 % (3-13); PLATELET COUNT 191 10^3/uL (150-450); RED BLOOD COUNT 4.61 10^6/uL (3.72-5.28); RED CELL DISTRIBUTION WIDTH 12.9 % (11.5-14.0); SEGMENTED NEUTROPHILS % (AUTO) 76.5 % (42-78); TOTAL CELLS COUNTED % (AUTO) 100 %; WHITE BLOOD COUNT 9.7 10^3/uL (4.0-10.5)
[2018-07-08 16:28] LABS: ALANINE AMINOTRANSFERASE 24 U/L (9-52); ALBUMIN 4.9 g/dL (3.5-5.0); ALKALINE PHOSPHATASE 84 U/L (38-126); ANION GAP 10 (5-19); ASPARTATE AMINO TRANSFERASE 23 U/L (14-36); BILIRUBIN,DIRECT 0.4 mg/dL (0.0-0.4); BILIRUBIN,TOTAL 0.8 mg/dL (0.2-1.3); BLOOD UREA NITROGEN 9 mg/dL (7-20); CALCIUM 10.5 mg/dL (8.4-10.2); CARBON DIOXIDE 18 mmol/L (22-30); CHLORIDE 112 mmol/L (98-107); GLUCOSE 92 mg/dL (75-110); POTASSIUM 4.1 mmol/L (3.6-5.0); SODIUM 139.6 mmol/L (137-145); TOTAL PROTEIN 8.2 g/dL (6.3-8.2)
--- NOTE | 2018-07-08 17:07 | RADIOLOGY REPORT (SQ) ---
EXAM DESCRIPTION: U/S NON OB PEL TV W/DOPPLER COMPLETED DATE/TIME: 07/08/2018 4:55 pm REASON FOR STUDY: Rt pelvic pain, h/o torsion COMPARISON: CT abdomen pelvis dated 06/15/2018 TECHNIQUE: Dynamic and static grayscale images acquired of the pelvis via transvaginal approach and recorded on PACS. Additional selected color Doppler and spectral images recorded. LIMITATIONS: None. FINDINGS: UTERUS: Contour normal. No mass. ENDOMETRIAL STRIPE: No focal or generalized thickening. No masses. CERVIX: No nabothian cysts. RIGHT OVARY AND DOPPLER: Normal size. No worrisome masses. Normal arterial vascular flow without evid ence for torsion. There is a simple 1.9 x 1.0 cm cyst. LEFT OVARY AND DOPPLER: Normal size. No worrisome masses. Normal arterial vascular flow without evide nce for torsion. FREE FLUID: None noted. OTHER: Echogenic foci in the fundus are consistent with tubal ligation device. MEASUREMENTS: UTERUS: 6.6 x 4.5 x 3.5 cm. ENDOMETRIAL STRIPE: 2.5 mm. RIGHT OVARY: 2.6 x 2.0 x 1.8 cm. LEFT OVARY: 2.0 x 1.7 x 1.6 cm. IMPRESSION: NORMAL TRANSVAGINAL PELVIC ULTRASOUND. TECHNICAL DOCUMENTATION: JOB ID: [id number] [employer]- All Rights Reserved Rev-08/07 Reading location - IP/workstation name: [email or web address]
[2018-07-08 17:56] LABS: APPEARANCE,URINE CLOUDY; BILIRUBIN,URINE NEGATIVE (NEGATIVE); COLOR,URINE AMBER; GLUCOSE, URINE NEGATIVE (NEGATIVE); KETONES,URINE TRACE mg/dL (NEGATIVE); LEUKOCYTE ESTERASE,URINE NEGATIVE (NEGATIVE); NITRITE,URINE NEGATIVE (NEGATIVE); PROTEIN,URINE 100 mg/dL (NEGATIVE); URINE SPECIFIC GRAVITY 1.027
--- NOTE | 2018-07-08 18:06 | ER Document Report ---
ED General - General Chief Complaint: Abdominal Pain Stated Complaint: ABDOMINAL PAIN Time Seen by Provider: 07/08/18 15:17 TRAVEL OUTSIDE OF THE [place] IN LAST 30 DAYS: No - HPI Notes: Patient is a 43-year-old female with a history of cholecystectomy, ovarian torsion, tubal ligation, and previous as well as marijuana use who presents complaining of right lower pelvic pain that began suddenly this morning. Patient states that the pain has been sharp all day and she has had associated nausea and vomiting. Patient states that the pain does not radiate and feels somewhat similarly to the ovarian torsion that she had previously. She has not had any other vaginal discharge, odor, or bleeding. Denies any headache, fever, URI, sore throat, chest pain, palpitations, syncope, cough, shortness of breath, wheeze, dyspnea, diarrhea, urinary retention, dysuria, hematuria, back pain, or rash. - Related Data Allergies/Adverse Reactions: ketorolac [From Toradol] Allergy (Verified 07/08/18 15:27) Past Medical History - Social History Smoking Status: Current Every Day Smoker Frequency of alcohol use: None Drug Abuse: Marijuana Family History: Reviewed & Not Pertinent Patient has suicidal ideation: No Patient has homicidal ideation: No Renal/ Medical History: Denies: Hx Peritoneal Dialysis Psychiatric Medical History: Reports: Hx Depression Past Surgical History: Reports: Hx Section, Hx Cholecystectomy, Hx Gynecologic Surgery - ovarian cyst torsion, Hx Tubal Ligation Review of Systems - Review of Systems -: Yes All other systems reviewed and negative Physical Exam - Vital signs Vitals: Pulse Resp BP Pulse Ox 103 H 14 144/87 H 99 07/08/18 14:44 07/08/18 14:44 07/08/18 14:44 07/08/18 14:44 - Notes Notes: PHYSICAL EXAMINATION: GENERAL: No acute resp distress. Pt appears uncomfortable. LUNGS: Breath sounds clear to auscultation bilaterally and equal. No wheezes rales or rhonchi. HEART: Regular rate and rhythm without murmurs ABDOMEN: Soft, nondistended abdomen. No guarding, no rebound. No masses appreciated. Normal bowel sounds present. CVA tenderness negative bilaterally. + tenderness lower pelvic area R>L. Female : No inguinal adenopathy. External genitalia without erythema, lesions, or masses. Vaginal mucosa pink. Cervix parous, pink, and with scant bloody discharge. Uterus is smooth. No adnexal tenderness. No CMT. Musculoskeletal: FROM to passive/active. Strength 5+/5. Extremities: No cyanosis/clubbing/edema b/l. Peripheral pulses 2+. Capillary refill less than 3 seconds. NEUROLOGICAL: Normal speech, normal gait. Normal sensory, motor exams PSYCH: Normal mood, normal affect. SKIN: Warm, Dry, normal turgor, no rashes or lesions noted. Course - Re-evaluation Re-evalutation: 07/08/18 20:31 Patient is an afebrile, well-hydrated, 43-year-old female who presents the emergency department for nonspecific lower abdominal pain. Vitals are accepta ble without significant tachycardia, tachypnea, or hypoxia. PE is otherwise unremarkable. Patient is nontoxic-appearing and is able to tolerate p.o. without difficulty. CBC, CMP, urinalysis, wet mount, hCG, chlamydia/gonorrhea, pelvic exam, transvaginal ultrasound, CT scan of the abdomen/pelvis was all unremarkable for acute pathology. There does remain the possibility of recently passed stone with hematuria and symptomatology, but is still of lower suspicion. No further labs or imaging warranted at this time. Low suspicion/risk for acute appendicitis, bowel obstruction, acute cholecystitis, acute cholangitis, perforated diverticulitis, incarcerated hernia, pancreatitis, perforated ulcer, peritonitis, sepsis, pelvic inflammatory disease, ectopic , tubo- ovarian abscess, ovarian torsion, or other systemic emergent condition at this time. Patient is aware that her condition can change from initial presentation and she needs to monitor symptoms closely and seek medical attention if any acute changes. Conservative measures otherwise for symptoms. Recheck with your PCM in 2-3 days. Consider consult with a warehouse helper/[employer]. Return to the ED with any worsening/concerning symptoms otherwise as reviewed in discharge. Patient is in agreement. - Vital Signs Vital signs: Temp Pulse Resp BP Pulse Ox 98.5 F 103 H 14 144/87 H 99 07/08/18 19:07 07/08/18 14:44 07/08/18 14:44 07/08/18 14:44 07/08/18 14:44 - Laboratory Result Diagrams: 07/08/18 15:47 07/08/18 15:47 Laboratory results interpreted by me: 07/08/18 07/08/1807/08/19 15:47 15:47 17:29 Hgb 15.9 H MCV 98 H MCH 34.6 H Chloride 112 H Carbon Dioxide 18 L Creatinine 0.48 L Calcium 10.5 H Urine Protein 100 H Urine Ketones TRACE H Urine Blood LARGE H Urine Urobilinogen 2.0 H Urine Ascorbic Acid 20 H Discharge - Discharge Clinical Impression: Lower abdominal pain, unspecified Condition: Stable Disposition: HOME, SELF-CARE Instructions: Antinausea Medication ([facility]), Abdominal Pain ([facility]) Additional Instructions: Maintain adequate fluid and food intake [place] diet ([employer] Bananas, rice, apples, toast, etc Zofran as needed tylenol if needed Monitor for any worsening symptoms Make sure you are staying hydrated enough to urinate and have normal BM's Recheck with your PCM in 2-3 days Consider consult with Gastroenterology for ongoing/worsening symptoms Return to the ED with any worsening symptoms and/or development of fever, headache, chest pain, palpitations, syncope, shortness of breath, trouble breathing, abdominal pain, n/v/d, blood in stool/urine, weakness, or other worsening symptoms that are concerning to you. Prescriptions: Ondansetron [Zofran Odt 4 mg Tablet] 1 - 2 tab PO Q4H PRN #15 tab.rapdis PRN Reason: For Nausea/Vomiting Forms: Elevated Blood Pressure, Smoking Cessation Education Referrals: PRATIMA BEAR MD [ACTIVE STAFF] - Follow up as needed [facility] [Provider Group] - Follow up as needed
[2018-07-08 18:15] LABS: T.VAGINALIS (WET MOUNT) NO TRICHOMONAS SEEN; YEAST (WET MOUNT) NO YEAST SEEN
[2018-07-08 18:16] LABS: RBCS (WET MOUNT) RARE RBCS SEEN; WBCS (WET MOUNT) NO WBCS SEEN
[2018-07-08 19:41] LABS: CHLAM PCR NOT DETECTED (NOT DETECT); GON PCR NOT DETECTED (NOT DETECT)
--- NOTE | 2018-07-08 20:21 | RADIOLOGY REPORT (SQ) ---
EXAM DESCRIPTION: RadLex: CT ABDOMEN PELVIS WITH IV CONTRAST CLINICAL HISTORY: 43 years Female; Lower abd pain R>L TECHNIQUE: CT of the abdomen and pelvis using intravenous 87 mL Omnip[address] scans at this facility use dose modulation, iterative reconstruction, and/or weight based dosing when appropriate to reduce radiation dose to as low as reasonably achievable. COMPARISON: 06/15/2018 FINDINGS: Abdomen: Liver:No focal lesions. No intrahepatic ductal distention. Gallbladder: Surgically absent Pancreas:Within normal limits Spleen:Within normal limits Right kidney:No hydronephrosis. No focal lesion. Left kidney:No hydronephrosis. No focal lesion. Adrenal glands:Within normal limits Vascular structures:Within normal limits Pelvis: Small bowel:No significant distention. Appendix:Within normal limits Colon: Several diverticula along the sigmoid colon. No acute pericolonic edema. Mild diffuse wall thickening, mostly along the descending colon, is similar to prior exam. No colonic distention. No free intraperitoneal fluid or air. Uterus is unremarkable. Bilateral tubal occlusion wires are noted. No adnexal enlargement. No pelvic adenopathy or acute edema. IMPRESSION: 1. No acute findings 2. Mild colonic diverticulosis but no CT evidence for acute diverticulitis. Mild chronic colonic wall thickening is similar to prior exam. 3. Previous cholecystectomy and other chronic findings as described.
[2018-07-08 20:45] VITALS: BP 105/74
== END 2018-07-08 20:45 | disposition home or self-care (01) ==
LOC: ER 14:12
DX: R10.30 Lower abdominal pain, unspecified (principal); R10.2 Pelvic and perineal pain; R11.2 Nausea with vomiting, unspecified; R10.9 Unspecified abdominal pain; Z90.49 Acquired absence of other specified parts of digestive tract; F17.200 Nicotine dependence, unspecified, uncomplicated
CPT/HCPCS: 96376; 99284; 96374; 96375; 36415; 87210; 85025; 81025; 80053; 81001; 87491; 87591; 76830; 93976; 74177; J1200; J2270; J2405

== ENCOUNTER 2019-05-09 17:51 | Emergency (ER) | payer MEDICAID ==
--- NOTE | 2019-05-09 18:50 | ER Document Report ---
ED Medical Screen (RME) - General Chief Complaint: Flank Pain Stated Complaint: RIGHT FLANK PAIN Time Seen by Provider: 05/09/19 18:45 Mode of Arrival: Ambulatory Information source: Patient Notes: 44-year-old female presented to ED for right flank pain that started yesterday. She does have a history of kidney stones her last CT was in August 2018. When the pain is real bad she has waves of nausea and vomiting. States she is passed the last when she had but she thinks she has another one now. She states she does have blood in her urine. She states she has a history of a right ureteral stent 9 years ago when she was . Last menstrual cycle last week. We will get blood urine and ultrasound of the kidneys. We will medicate for nausea with Zofran. I have greeted and performed a rapid initial assessment of this patient. A comprehensive ED assessment and evaluation of the patient, analysis of test results and completion of medical decision making process will be conducted by an additional ED providers. TRAVEL OUTSIDE OF THE [place] IN LAST 30 DAYS: No - Related Data Allergies/Adverse Reactions: ketorolac [From Toradol] Allergy (Severe, Verified 05/09/19 18:45) Hives Home Medications: denies Past Medical History - Social History Chew tobacco use (# tins/day): No Frequency of alcohol use: None Drug Abuse: Marijuana Renal/ Medical History: Denies: Hx Peritoneal Dialysis Psychiatric Medical History: Reports: Hx Depression Past Surgical History: Reports: Hx Section, Hx Cholecystectomy, Hx Gynecologic Surgery - ovarian cyst torsion, Hx Tubal Ligation Physical Exam - Vital signs Vitals: Temp Pulse Resp BP Pulse Ox 98.4 F 70 18 135/58 H 98 05/09/19 17:54 05/09/19 17:54 05/09/19 17:54 05/09/19 17:54 05/09/19 17:54 Course - Vital Signs Vital signs: Temp Pulse Resp BP Pulse Ox 98.4 F 90 18 132/66 H 97 05/09/19 18:06 05/09/19 18:06 05/09/19 18:06 05/09/19 18:06 05/09/19 18:06
[2019-05-09] MEDS ORDERED: ONDANSETRON 4 MG TAB.RAPDIS PO ONE (18:53)
[2019-05-09] MEDS ORDERED: OXYCODONE-ACETAMINOPHEN 5-325 MG TABLET PO ONE (19:09)
[2019-05-09 19:36] LABS: APPEARANCE,URINE CLOUDY; BILIRUBIN,URINE NEGATIVE (NEGATIVE); GLUCOSE, URINE NEGATIVE (NEGATIVE); KETONES,URINE NEGATIVE (NEGATIVE); PROTEIN,URINE NEGATIVE (NEGATIVE); URINE SPECIFIC GRAVITY 1.025; UROBILINOGEN,URINE NEGATIVE mg/dL (<2.0)
[2019-05-09 19:39] LABS: COLOR,URINE YELLOW
[2019-05-09 19:54] LABS: URINE AMPHETAMINES SCREEN NEGATIVE; URINE BARBITURATES SCREEN NEGATIVE; URINE BENZODIAZEPINES SCREEN NEGATIVE; URINE COCAINE SCREEN NEGATIVE; URINE MARIJUANA (THC) SCREEN NEGATIVE; URINE METHADONE SCREEN NEGATIVE; URINE PHENCYCLIDINE SCREEN NEGATIVE
[2019-05-09] MEDS ORDERED: HYDROMORPHONE HCL INJ/PF 2 MG/ML AMPULE IM ONE (20:37)
--- NOTE | 2019-05-09 20:56 | ER Document Report ---
ED General - General Chief Complaint: Flank Pain Stated Complaint: RIGHT FLANK PAIN Time Seen by Provider: 05/09/19 18:45 Mode of Arrival: Ambulatory Notes: Patient is a 44-year-old -[place] female with a past medical history of kidney stones who presents to the emergency department today with a chief complaint of right-sided flank pain that began yesterday morning. She states that this feels exactly like her prior kidney stones. She states that she took 1 of her sons Percocets without any improvement. She states that she is allergic to Toradol. She received a Percocet upon triage here and states it has not helped. She states she is having some hesitancy and urgency with urination. She does not know of any hematuria. She states the pain is sharp in the right side of her flank is very tender. She admits to some nausea but no vomiting. No diarrhea. She denies any known fevers chills or night sweats. No vaginal discharge or bleeding. TRAVEL OUTSIDE OF THE [place] IN LAST 30 DAYS: No - Related Data Allergies/Adverse Reactions: ketorolac [From Toradol] Allergy (Severe, Verified 05/09/19 18:45) Hives Home Medications: denies Past Medical History - General Information source: Patient - Social History Smoking Status: Current Every Day Smoker Chew tobacco use (# tins/day): No Frequency of alcohol use: None Drug Abuse: Marijuana Family History: Reviewed & Not Pertinent Patient has suicidal ideation: No Patient has homicidal ideation: No Renal/ Medical History: Denies: Hx Peritoneal Dialysis Psychiatric Medical History: Reports: Hx Depression Past Surgical History: Reports: Hx Section, Hx Cholecystectomy, Hx Gynecologic Surgery - ovarian cyst torsion, Hx Tubal Ligation Review of Systems - Review of Systems Gastrointestinal: Nausea Genitourinary: Flank pain, Urgency -: Yes All other systems reviewed and negative Physical Exam - Vital signs Vitals: Temp Pulse Resp BP Pulse Ox 98.4 F 70 18 135/58 H 98 05/09/19 17:54 05/09/19 17:54 05/09/19 17:54 05/09/19 17:54 05/09/19 17:54 - General General appearance: Appears well, Alert In distress: None - Respiratory Respiratory status: No respiratory distress Chest status: Nontender Breath sounds: Normal Chest palpation: Normal - Cardiovascular Rhythm: Regular Heart sounds: Normal auscultation - Abdominal Inspection: Normal Distension: No distension Bowel sounds: Normal Tenderness: Tender - Along the course of the right ureter - Back Back: CVA tenderness - Right-sided - Neurological Neuro grossly intact: Yes Cognition: Normal Orientation: AAOx4 Jack Coma Scale Eye Opening: Spontaneous Jack Coma Scale Verbal: Oriented [place] Coma Scale Motor: Obeys Commands [place] Coma Scale Total: 15 Speech: Normal - Psychological Associated symptoms: Normal affect, Normal mood - Skin Skin Temperature: Warm Skin Moisture: Dry Skin Color: Normal Course - Re-evaluation Re-evalutation: 05/09/19 22:21 CT negative for stone or any acute abdominal process. She does have some evidence of constipation per radiologist. There is some blood in the urine. Possibly missed stone but there is no residual effects such as hydronephrosis or hydroureter. Patient's pain has improved here upon reevaluation. She is resting comfortably in the room. She will be sent home on Flomax, Pyridium and MiraLAX. Counseled her at length regarding the importance of outpatient follow- up and advised that she return here or any ER immediately with any new, persistent or worsening symptoms. She verbalized understood and agreed. - Vital Signs Vital signs: Temp Pulse Resp BP Pulse Ox 98.4 F 90 18 132/66 H 97 05/09/19 18:06 05/09/19 18:06 05/09/19 18:06 05/09/19 18:06 05/09/19 18:06 - Laboratory Result Diagrams: 05/09/19 20:52 05/09/19 20:52 Laboratory results interpreted by me: 05/09/19 05/09/19 19:16 20:52 MCH 34.3 H Urine Blood MODERATE H Discharge - Discharge Clinical Impression: Flank pain Hematuria Qualifiers: Hematuria type: unspecified type Qualified Code(s): R31.9 - Hematuria, unspecified Constipation Qualifiers: Constipation type: unspecified constipation type Qualified Code(s): K59.00 - Constipation, unspecified Condition: Stable Disposition: HOME, SELF-CARE Instructions: Abdominal Pain ([facility]) Additional Instructions: Follow-up with your regular doctor in 2 to 3 days for reevaluation. Return here or any ER immediately with any new, persistent or worsening symptoms. Prescriptions: Tamsulosin HCl [Flomax 0.4 mg Cap.sr] 0.4 mg PO DAILY #7 cap.sr.24h Polyethylene Glycol 3350 [Miralax Powder 17 gm/Packet] 1 packet PO DAILY #5 pkg Phenazopyridine HCl [Pyridium 200 mg Tablet] 200 mg PO TID #15 tablet
[2019-05-09 21:21] LABS: ABSOLUTE BASOPHILS # (AUTO) 0.1 10^3/uL (0.0-0.2); ABSOLUTE EOSINOPHILS # (AUTO) 0.4 10^3/uL (0.0-0.6); ABSOLUTE MONOCYTES (AUTO) 0.4 10^3/uL (0.1-1.4); ABSOLUTE NEUT (AUTO) 3.6 10^3/uL (1.7-8.2); BASOPHILS % (AUTO) 0.8 % (0-2); EOSINOPHILS % (AUTO) 5.7 % (0-6); HEMATOCRIT 38.7 % (36.0-47.0); HEMOGLOBIN 13.6 g/dL (12.0-15.5); LYMPHOCYTES % (AUTO) 39.9 % (13-45); MEAN CORPUSCULAR HEMOGLOBIN 34.3 pg (27.0-33.4); MEAN CORPUSCULAR HGB CONC 35.3 g/dL (32.0-36.0); MEAN CORPUSCULAR VOLUME 97 fl (80-97); MONOCYTES % (AUTO) 5.7 % (3-13); PLATELET COUNT 209 10^3/uL (150-450); RED BLOOD COUNT 3.97 10^6/uL (3.72-5.28); RED CELL DISTRIBUTION WIDTH 12.8 % (11.5-14.0); SEGMENTED NEUTROPHILS % (AUTO) 47.9 % (42-78); TOTAL CELLS COUNTED % (AUTO) 100 %; WHITE BLOOD COUNT 7.5 10^3/uL (4.0-10.5)
[2019-05-09 21:38] LABS: ALBUMIN 3.9 g/dL (3.5-5.0); ALKALINE PHOSPHATASE 74 U/L (38-126); ANION GAP 6 (5-19); ASPARTATE AMINO TRANSFERASE 18 U/L (14-36); BILIRUBIN,TOTAL 0.4 mg/dL (0.2-1.3); BLOOD UREA NITROGEN 12 mg/dL (7-20); CALCIUM 8.9 mg/dL (8.4-10.2); CARBON DIOXIDE 24 mmol/L (22-30); CHLORIDE 107 mmol/L (98-107); GLUCOSE 79 mg/dL (75-110); TOTAL PROTEIN 6.7 g/dL (6.3-8.2)
--- NOTE | 2019-05-09 21:49 | RADIOLOGY REPORT (SQ) ---
EXAM DESCRIPTION: CT scan of the abdomen and pelvis without contrast. CLINICAL HISTORY: 44 years Female; r flank pain TECHNIQUE: CT of the abdomen and pelvis without intravenous contrast. All CT scans at this facility use dose modulation, iterative reconstruction, and/or weight based dosing when appropriate to reduce radiation dose to as low as reasonably achievable. This exam was performed according to our department optimization program which includes automated exposure control, adjustment of the mA and/or kv according to patient size and/or use of iterative reconstruction technique. COMPARISON: CT scan of the abdomen and pelvis with contrast July 08, 2018 FINDINGS: Lower chest:The lung bases are clear. The visualized portion of heart and great vessels are normal. Abdomen: Liver and biliary tree: The gallbladder is surgically absent. The unenhanced liver is unremarkable. Pancreas: Normal Spleen:Within normal limits Kidneys: Kidneys are normal in size, shape and position. No stones. No mass or hydronephrosis. Adrenal glands:Within normal limits Vascular structures:Within normal limits Retroperitoneum: No mass or lymphadenopathy Abdominal wall: normal GI: Moderate stool is present throughout the colon. No focal bowel wall thickening or inflammatory change. Appendix: The appendix appears normal. General: No free air. No free fluid Pelvis: Lymph nodes: No mass or lymphadenopathy Bladder: The bladder is empty. Pelvis: Embolization coils are present in the uterine fundus extending out into the fallopian tubes bilaterally consistent with bilateral tubal ligation. Bones: No acute bone findings. IMPRESSION: No acute process in the abdomen or pelvis. No significant interval change. No renal or ureteral stones. Moderate stool in the colon. No inflammatory process.
[2019-05-09 22:50] VITALS: BP 118/68
== END 2019-05-09 22:55 | disposition home or self-care (01) ==
LOC: ER 17:51
DX: K59.00 Constipation, unspecified (principal); R31.9 Hematuria, unspecified; R39.15 Urgency of urination; R39.11 Hesitancy of micturition; R10.9 Unspecified abdominal pain; R11.0 Nausea; Z87.442 Personal history of urinary calculi; Z88.8 Allergy status to other drugs, medicaments and biological substances
CPT/HCPCS: 36415; 83690; 84703; 85025; 80053; 81001; 80307; 74176; S0119; J1170; 96372; 99284

== ENCOUNTER 2019-08-12 11:16 | Emergency (ER) | payer MEDICAID ==
[2019-08-12 11:23] VITALS: BP 118/84
--- NOTE | 2019-08-12 11:46 | ER Document Report ---
ED Medical Screen (RME) - General Stated Complaint: BACK PAIN Time Seen by Provider: 08/12/19 11:42 Mode of Arrival: Ambulatory Information source: Patient Notes: 44-year-old female with history of kidney stones and stents presents to the emergency department with complaints of right flank pain for the past 3 days. Also complains of urinary urgency. Reports vomiting from the pain denies fever or diarrhea. I have greeted and performed a rapid initial assessment of this patient. A comprehensive ED assessment and evaluation of the patient, analysis of test results and completion of the medical decision making process will be conducted by additional ED providers. TRAVEL OUTSIDE OF THE [place] IN LAST 30 DAYS: No - Related Data Allergies/Adverse Reactions: ketorolac [From Toradol] Allergy (Severe, Verified 05/09/19 18:45) Hives Past Medical History Renal/ Medical History: Denies: Hx Peritoneal Dialysis Psychiatric Medical History: Reports: Hx Depression Past Surgical History: Reports: Hx Section, Hx Cholecystectomy, Hx Gynecologic Surgery - ovarian cyst torsion, Hx Tubal Ligation Physical Exam - Vital signs Vitals: Temp Pulse Resp BP Pulse Ox 98.3 F 78 14 118/84 99 08/12/19 11:22 08/12/19 11:22 08/12/19 11:22 08/12/19 11:22 08/12/19 11:22 Course - Vital Signs Vital signs: Temp Pulse Resp BP Pulse Ox 98.3 F 78 14 118/84 99 08/12/19 11:22 08/12/19 11:22 08/12/19 11:22 08/12/19 11:22 08/12/19 11:22
[2019-08-12] MEDS ORDERED: ACETAMINOPHEN 325 MG TABLET PO ONE (11:48)
[2019-08-12 12:16] LABS: ABSOLUTE BASOPHILS # (AUTO) 0.1 10^3/uL (0.0-0.2); ABSOLUTE EOSINOPHILS # (AUTO) 0.2 10^3/uL (0.0-0.6); ABSOLUTE LYMPHOCYTES (AUTO) 2.1 10^3/uL (0.5-4.7); ABSOLUTE MONOCYTES (AUTO) 0.4 10^3/uL (0.1-1.4); ABSOLUTE NEUT (AUTO) 5.1 10^3/uL (1.7-8.2); BASOPHILS % (AUTO) 0.9 % (0-2); EOSINOPHILS % (AUTO) 2.4 % (0-6); HEMATOCRIT 46.3 % (36.0-47.0); LYMPHOCYTES % (AUTO) 26.9 % (13-45); MEAN CORPUSCULAR HEMOGLOBIN 33.3 pg (27.0-33.4); MEAN CORPUSCULAR HGB CONC 34.6 g/dL (32.0-36.0); MEAN CORPUSCULAR VOLUME 96 fl (80-97); MONOCYTES % (AUTO) 4.8 % (3-13); PLATELET COUNT 233 10^3/uL (150-450); RED BLOOD COUNT 4.81 10^6/uL (3.72-5.28); RED CELL DISTRIBUTION WIDTH 12.3 % (11.5-14.0); TOTAL CELLS COUNTED % (AUTO) 100 %; WHITE BLOOD COUNT 7.8 10^3/uL (4.0-10.5)
[2019-08-12 12:25] LABS: APPEARANCE,URINE SLIGHTLY-CLOUDY; BILIRUBIN,URINE NEGATIVE (NEGATIVE); COLOR,URINE YELLOW; GLUCOSE, URINE NEGATIVE (NEGATIVE); KETONES,URINE NEGATIVE (NEGATIVE); LEUKOCYTE ESTERASE,URINE NEGATIVE (NEGATIVE); NITRITE,URINE NEGATIVE (NEGATIVE); PROTEIN,URINE NEGATIVE (NEGATIVE); URINE SPECIFIC GRAVITY 1.016; UROBILINOGEN,URINE NEGATIVE mg/dL (<2.0)
[2019-08-12 12:47] LABS: ALBUMIN 4.7 g/dL (3.5-5.0); ALKALINE PHOSPHATASE 87 U/L (38-126); ANION GAP 9 (5-19); ASPARTATE AMINO TRANSFERASE 23 U/L (14-36); BILIRUBIN,TOTAL 1.1 mg/dL (0.2-1.3); BLOOD UREA NITROGEN 11 mg/dL (7-20); CALCIUM 9.6 mg/dL (8.4-10.2); CARBON DIOXIDE 26 mmol/L (22-30); CHLORIDE 104 mmol/L (98-107); GLUCOSE 84 mg/dL (75-110); POTASSIUM 4.4 mmol/L (3.6-5.0); TOTAL PROTEIN 8.5 g/dL (6.3-8.2)
--- NOTE | 2019-08-12 13:04 | ER Document Report ---
Entered by MATTHEW FISHER SCRIBE 08/12/19 1227 Acting as scribe for:ELMO TRUONG MD ED General - General Chief Complaint: Flank Pain Stated Complaint: BACK PAIN Time Seen by Provider: 08/12/19 11:42 Mode of Arrival: Ambulatory Information source: Patient Notes: This 44 year old female patient presents to the emergency department today for complaints of right-sided flank pain. Patient reports a history of kidney stones but she states this "hurts far worse than any kidney stone she has ever had". Patient states it "feels like it is stuck or something" ". Patient states she has had some chills and vomiting as well. Patient denies any fevers or recent heavy lifting/straining. TRAVEL OUTSIDE OF THE [place] IN LAST 30 DAYS: No - Related Data Allergies/Adverse Reactions: ketorolac [From Toradol] Allergy (Severe, Verified 05/09/19 18:45) Hives Past Medical History - General Information source: Patient - Social History Smoking Status: Current Every Day Smoker Cigarette use (# per day): Yes - 1 PPD Chew tobacco use (# tins/day): No Smoking Education Provided: No Frequency of alcohol use: Rare Drug Abuse: Marijuana Occupation: Unemployed Lives with: Family Family History: Reviewed & Not Pertinent Patient has homicidal ideation: No Renal/ Medical History: Reports: Hx Kidney Stones Psychiatric Medical History: Reports: Hx Depression, Other - ADD Past Surgical History: Reports: Hx Section, Hx Cholecystectomy, Hx Gynecologic Surgery - ovarian cyst torsion, Hx Tubal Ligation Review of Systems - Review of Systems Constitutional: No symptoms reported EENT: No symptoms reported Cardiovascular: No symptoms reported Respiratory: No symptoms reported Gastrointestinal: No symptoms reported Genitourinary: See HPI, Flank pain - right Female Genitourinary: No symptoms reported Musculoskeletal: See HPI, Back pain Skin: No symptoms reported Hematologic/Lymphatic: No symptoms reported Neurological/Psychological: No symptoms reported -: Yes All other systems reviewed and negative Physical Exam - Vital signs Vitals: Temp Pulse Resp BP Pulse Ox 98.3 F 78 14 118/84 99 08/12/19 11:22 08/12/19 11:22 08/12/19 11:22 08/12/19 11:22 08/12/19 11:22 - Notes Notes: Physical Exam: General: Alert, appears well. HEENT: Normocephalic. Atraumatic. PERRL. Extraocular movements intact. Oropharynx clear. Neck: Supple. Non-tender. Respiratory: No respiratory distress. Clear and equal breath sounds bilaterally. Cardiovascular: Regular rate and rhythm. Abdominal: Normal Inspection. Non-tender. No distension. Normal Bowel Sounds. Back: Tenderness to palpation of the right-sided lumbar and flank muscles with tenderness extending laterally out over the inferior ribs on the right. Extremities: Moves all four extremities. Upper extremities: Normal inspection. Normal ROM. Lower extremities: Normal inspection. No edema. Normal ROM. Neurological: Normal cognition. AAOx4. Normal speech. Psychological: Anxious. Skin: Warm. Dry. Normal color. Course - Re-evaluation Re-evalutation: 08/12/19 13:28 Almost immediately after I exited the room when I first saw the patient, she came out storming down the hallway demanding to speak to the charge nurse and patient advocate complaining. She later came up to my desk demanding to talk with me. I went into her room to tell her what I had learned and what we are planning to do, but she was yelling at me and frequently interrupting. She complained of laying here 2 hours not getting pain medicine(she received Tylenol at triage). I told her when I left the room is going to look at her lab work and see about her CT scan and then come back with a treatment plan. She claimed that no one had come for her for the CT scan. I reported that I think the veterinary technology instructor been by at least once and could not find her. She then complained that it would take too long for the CT scan and she needed pain medicine immediately. I told her it would just take a few minutes to do the scan, she immediately interrupted me and stated but then I would have to wait 45 minutes for radiologist to read it. I was never able to tell her that I looked at the scans myself, because she would not stop yelling at me. She then stated that she was going to leave and go to another hospital. Apparently she complained some more to the nursing staff and then changed her mind and went to get the CT scan done. Shortly after she returned from CT scanner she walked out the door. I did review the scans immediately and saw no kidney stones or evidence of kidney stones. Later radiology report came back confirming this. The charge nurse had asked me about giving her something else for pain, so I ordered tramadol. I was then told she had already left so they could not give it to her. The CT scan was ordered at triage. She did have gross blood in the urine on urinalysis. Due to the litigious behavior of this patient, I did allow the CT scan to be performed that had been ordered before I saw the patient. In the last 15 months, the patient has been to the emergency room 7 times, had [address] scans. All of the scans have been negative. - Vital Signs Vital signs: Temp Pulse Resp BP Pulse Ox 98.3 F 78 14 118/84 99 08/12/19 11:42 08/12/19 11:22 08/12/19 11:22 08/12/19 11:22 08/12/19 11:22 - Laboratory Result Diagrams: 08/12/19 11:59 08/12/19 11:59 Laboratory results interpreted by me: 08/12/19 08/12/19 08/12/19 11:59 11:59 11:59 Hgb 16.0 H Total Protein 8.5 H Urine Blood LARGE H - Diagnostic Test Radiology reviewed: Image reviewed, Reports reviewed - CT scan of the abdomen pelvis does not show explanation for the right flank pain, there are no ureteral or renal stones, there is no hydronephrosis or hydroureter. Discharge - Discharge Clinical Impression: Acute right flank pain Hematuria Qualifiers: Hematuria type: unspecified type Qualified Code(s): R31.9 - Hematuria, unspecified Condition: Stable Disposition: ELOPED I personally performed the services described in the documentation, reviewed and edited the documentation which was dictated to the scribe in my presence, and it accurately records my words and actions.
[2019-08-12] MEDS ORDERED: TRAMADOL HCL 50 MG TABLET PO ONE (13:15)
--- NOTE | 2019-08-12 13:23 | RADIOLOGY REPORT (SQ) ---
EXAM DESCRIPTION: CT ABD/PELVIS NO ORAL OR IV IMAGES COMPLETED DATE/TIME: 08/12/2019 1:11 pm REASON FOR STUDY: right flank pain, hx kidney stones COMPARISON: 05/09/2019 TECHNIQUE: CT scan of the abdomen and pelvis performed without intravenous or oral contrast. Images reviewed with lung, soft tissue, and bone windows. Reconstructed coronal and sagittal MPR images revi ewed. All images stored on PACS. All CT scanners at this facility use dose modulation, iterative reconstruction, and/or weight based d osing when appropriate to reduce radiation dose to as low as reasonably achievable (ALARA). [facility]: Dose Right [facility]: CareDose [facility]: Dose Right [facility]: Teradose 4D [facility]: [facility] RADIATION DOSE: CT Rad equipment meets quality standard of care and radiation dose reduction techniq ues were employed. CTDIvol: 7.7 mGy. DLP: 412 mGy-cm.mGy. LIMITATIONS: None. FINDINGS: LOWER CHEST: No significant findings. No nodules or infiltrates. NON-CONTRASTED LIVER, SPLEEN, ADRENALS: Evaluation limited by lack of IV contrast. No identified sign ificant masses. PANCREAS: No masses. No peripancreatic inflammatory changes. GALLBLADDER: Surgically absent. RIGHT KIDNEY AND URETER: No suspicious masses. Assessment limited by lack of IV contrast. No signif icant calcifications. No hydronephrosis or hydroureter. LEFT KIDNEY AND URETER: No suspicious masses. Assessment limited by lack of IV contrast. No signifi cant calcifications. No hydronephrosis or hydroureter. AORTA AND RETROPERITONEUM: No aneurysm. No retroperitoneal masses or adenopathy. BOWEL AND PERITONEAL CAVITY: No obvious masses or inflammatory changes. No free fluid. APPENDIX: Normal. PELVIS, BLADDER, AND ABDOMINAL WALL:No abnormal masses. No free fluid. Bladder normal. IUD is in augustin ce. BONES: No significant findings. OTHER: No other significant finding. IMPRESSION: NO SIGNIFICANT OR ACUTE PROCESS IN THE ABDOMEN OR PELVIS. COMMENT: Quality ID # [id number]: Final reports with documentation of one or more dose reduction techniques (e.g., Automated exposure control, adjustment of the mA and/or kV according to patient size, use of iterative reconstruction technique) TECHNICAL DOCUMENTATION: JOB ID: [id number] 2010 [employer]- All Rights Reserved Reading location - IP/workstation name: [email or web address]
== END 2019-08-12 13:24 | disposition left against medical advice (07) ==
LOC: ER 11:16
DX: R10.9 Unspecified abdominal pain (principal); R31.9 Hematuria, unspecified; M54.9 Dorsalgia, unspecified; R68.83 Chills (without fever); R11.10 Vomiting, unspecified; Z87.442 Personal history of urinary calculi; Z88.8 Allergy status to other drugs, medicaments and biological substances; F17.210 Nicotine dependence, cigarettes, uncomplicated
CPT/HCPCS: 99281; 36415; 85025; 81025; 80053; 81001; 74176; J3490